=== PATIENT | male | born 1950 | race Caucasian/White ===

== ENCOUNTER 2018-05-19 04:41 | Inpatient (IN) | payer MEDICARE, MEDICAID ==
[~2018-05-19] VITALS: Ht 182.9 cm; Wt 86.9 kg
[~2018-05-19 04:41] MED LIST: ALBUTEROL SUL0.083 % IN; COLACE100 MG PO; FLEXERIL5 MG PO; LEVOTHYROXIN75 MCG PO; MOTRIN800 MG PO; PERCOCET 5/325M1 TAB PO
[2018-05-19] MEDS ORDERED: TAMSULOSIN0.4 MG PO (05:03)
--- NOTE | 2018-05-19 05:03 | NUR ---
PT WAS WHEELED STRAIGHT BACK TO ROOM 9.
[2018-05-19] MEDS ORDERED: MORPHINE SULFAT30 M1 PO (05:05)
[2018-05-19] MEDS ORDERED: LASIX40 MG PO (05:06)
[2018-05-19] MEDS ORDERED: OXYCODONE20 M1 PO (05:07)
[2018-05-19] MEDS ORDERED: MELOXICAM15 MG PO (05:07)
[2018-05-19] MEDS ORDERED: CLONAZEPAM1 MG PO (05:08)
[2018-05-19] MEDS ORDERED: LEVOTHYROXIN125 MC1 PO (05:08)
[2018-05-19] MEDS ORDERED: ZOLOFT50 MG PO (05:09)
[2018-05-19] MEDS ORDERED: POTASSIUM CHLO20 ME2 PO (05:09)
[2018-05-19] MEDS ORDERED: BREO ELLIPTA1 INH IN (05:10)
--- NOTE | 2018-05-19 05:30 | NUR ---
IN TO MEDICATE PT AND INFORMED PT I WAS GOING TO ADMINISTER PHENERGAN AND TORADOL FOR HIS PAIN AND PT REPLIED "THAT WONT WORK"
--- NOTE | 2018-05-19 05:41 | NUR ---
ASKED PT IF HIS PAIN IS STARTING TO EASE SINCE HE IS NO LONGER MOANING AND PT STATED NO.
[2018-05-19 05:49] LABS: AMYLASE 46 u/l (30-110); BILIRUBIN, TOTAL 1.1 mg/dL (0.0-1.4); BUN 18 mg/dL (8-23); BUN/CREATININE RATIO 18 (12-20 (CALC)); CARBON DIOXIDE 25 mmol/l (22-30); CHLORIDE 97 mmol/l (95-108); GFR > 60 ML/MIN (>=60 (CALC)); GFR FOR AFR.AMER. > 60 ML/MIN (>=60 (CALC)); LIPASE < 10 u/l (23-300); SGOT/AST 16 u/l (19-48); SGPT/ALT 23 u/l (11-66); SODIUM 138 mmol/l (137-146)
[2018-05-19 05:51] LABS: ANION GAP 21 (6-22 (CALC))
[2018-05-19 05:52] LABS: ALBUMIN 4.1 g/dL (3.2-5.0); ALKALINE PHOSPHATASE 118 u/l (38-126); POTASSIUM 4.7 mmol/l (3.5-5.1); TOTAL PROTEIN 7.9 g/dL (6.3-8.2)
[2018-05-19 05:55] LABS: HEMATOCRIT 39.2 % (39.0-50.0); HEMOGLOBIN 12.9 g/dl (14.0-18.0); IMMATURE GRANULOCYTES 1.1 % (0.0-5.0); MEAN CELL VOLUME 89.5 fL CALC (80.0-100.0); MEAN CORPUSCULAR HGB 29.5 pG CALC (26.0-32.0); MEAN CORPUSCULAR HGB CONC 32.9 g/L CALC (32.0-36.0); NEUT# 10.2 thou/uL (1.82-7.42); RED BLOOD COUNT 4.38 mill/uL (4.70-6.10); RED CELL DISTRI WIDTH 15.7 % (11.5-15.5)
--- NOTE | 2018-05-19 06:21 | NUR ---
PT UNABLE TO URINATE-DR GARAY ORDERED IV FLUIDS. WHILE HANGING FLUIDS I INQUIRED ABOUT PT'S PAIN SCALE SINCE PT STILL WAS NOT MOANING AND WAS LAYING ON STRETCHER WITH EYES CLOSED. PT STATED PAIN WAS A LOT BETTER BUT ASKED FROM 1-10 HOW WAS HIS PAIN HE SAID 10. INFORMED PT HE STATED PAIN WAS A LOT BETTER AND IT WAS A 10 WHEN HE CAME IN. PT THEN STATED 9, 8.5, THEN 7.
--- NOTE | 2018-05-19 06:27 | NUR ---
PT TO HAVE CT WITH ORAL CONTRAST. RT GHANSHYAM IN TO GIVE PT CONTRAST.
--- NOTE | 2018-05-19 06:50 | NUR ---
BEDSIDE REPORT GIVEN WITH DUNIA BRANNON.
--- NOTE | 2018-05-19 06:54 | NUR ---
PT RESTING COMFORTABLY IN STRETCHER RESTING WITH EYES CLOSED. PT AWAKENS TO VERBAL STIMULI AND DENIES ANY NEEDS. TEMP RECHECK 100.3, NOTIFIED AND AWAITING NEW ORDERS.
--- NOTE | 2018-05-19 07:06 | NUR ---
PT MEDICATED WITH 1000 MG OF TYLENOL. PT REPORTS LAST BM WAS 2 DAYS PRIOR AND HE HAS A HX OF CONSTIPATION. PER HE WAS KICKED IN THE TESTICLES 2 DAYS PRIOR WHEN THE ABD PAIN STARTED. PT A&O X 3, RESP EVEN AND UNLABORED. PT PAIN IS NOW 2/10. AND PT AWARE OF PLAN OF CARE AND WAIT TIME. PO CONSTRAST TOLERATED WELL AT THIS TIME.
--- NOTE | 2018-05-19 07:15 | NUR ---
PT REPORT INCREASE OF ABD PAIN. PAIN IS NOW 8/10. PT ALSO REQUESTING "BREATHING TREATMENT". PT HAS BREO AT BEDSIDE AND PER MD HE CAN USE IT. NEB TX ALSO ORDERED. MD AWARE OF INCREASE IN PAIN, AWAITING NEW ORDERS. IVF INFUSING WITH NO DIFFICULTY, IV SITE FREE FROM REDNESS AND EDEMA.
[2018-05-19 07:50] LABS: URINE BILIRUBIN - DIPSTICK NEGATIVE (NEGATIVE); URINE BLOOD DIPSTICK SMALL (NEGATIVE); URINE COLOR YELLOW; URINE GLUCOSE - DIPSTICK NEGATIVE (NEGATIVE); URINE KETONE 15 mg/dL (NEGATIVE); URINE LEUK ESTERASE NEGATIVE (NEGATIVE); URINE NITRITE - DIPSTICK NEGATIVE (Negative); URINE PROTEIN - DIPSTICK 30 mg/dL (NEG-TRACE); URINE SPECIFIC GRAVITY 1.025
[2018-05-19 07:52] LABS: URINE CLARITY CLEAR
--- NOTE | 2018-05-19 07:57 | NUR ---
PT RESTING ON STRETCHER WITH EYES CLOSED, BREATHING UNLABORED AND EASILY AROUSEABLE. IVF AND ABX INFUSING. CALL LIGHT IN REACH.
[2018-05-19 07:59] LABS: URINE WBC 0-2 WBC/hpf (0-5)
--- NOTE | 2018-05-19 08:05 | NUR ---
PT TO CT AND ULTRASOUND VIA STRETCHER IN STABLE CONDITION.
--- NOTE | 2018-05-19 09:10 | NUR ---
PT RETURNED FROM CT AND ULTRASOUND. PAIN IS NOW 4/10 AND PT RESTING COMFORTABLY IN STRETCHER. IV VANCO INITIATED. PT AWARE OF PENDING RESULTS AND WAIT TIME. CALL ZHOU WITHIN REACH.
--- NOTE | 2018-05-19 09:25 | NUR ---
MD AT BEDSIDE TO DISCUSS RESULTS AND PLAN FOR ADMISSION.
--- NOTE | 2018-05-19 09:38 | NUR ---
CALL PLACED TO MS, NURSE IN PT ROOM WILL CALL BACK FOR REPORT.
--- NOTE | 2018-05-19 10:00 | NUR ---
REPORT CALLED TO DUNIA VAUGHAN.
--- NOTE | 2018-05-19 10:30 | NUR ---
PT RESTING COMFORTABLY IN STRETCHER AND REPORTS PAIN IS 4/10. PT DENIES ANY NAUSEA AT THIS TIME. CALL ZHOU WITHIN REACH. PT AWARE OF PLAN FOR TRANSFER AND WAIT TIME.
--- NOTE | 2018-05-19 11:05 | NUR ---
Admission Note Report Given to: ALEXUS Transported by: Wheelchair X Stretcher Transported with: X Nurse Transporter X Patent IV O2 X Senior Ui Ux Designer PT TO ROOM 283 IN STABLE CONDITION.
[2018-05-19 11:18] VITALS: BP 107/64
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
--- NOTE | 2018-05-19 14:42 | NUR ---
DR AYALA HERE AT THIS TIME AND ROUDED WITH PT, PLAN IS TO USE ANTIBIOTICS FOR NOW AND IF NO IMPROVEMENTS POSSIBLE TRANSFER ELSEWHERE FOR SURGERY, KEEP NPO. DR MAYBERRY ALSO HERE AND ROUNDED, WROTE ORDERS.
[2018-05-19 16:00] VITALS: BP 118/63
[2018-05-19 19:00] VITALS: BP 114/61
--- NOTE | 2018-05-19 23:15 | NUR ---
PATIENT MEDICATED WITH KLONOPIN 1MG PO FOR ANXIETY AND WITH TYLENOL 650MG PO WITH SIP OF PO FLUIDS FOR TEMP OF 100.5, PATIENT ALSO MEDICATED FOR ADB PAIN WITH MORPHINE 4MG IVP FOR 10/10 ON PAIN SCALE. PATIENT PASSING GAS AND THEN I NCONT OF SMALL AMT OF LIQUID GREEN STOOL. ASSISTED TO BSC AND LINENS CHANGED. WILL ASSIST BACK TO THE BED WHEN FINISHED. CONT TO ENCOURAGE CDB EXERCISES AND USE OF IS Q1H WHILE AWAKE. USES WHEN REMINDED. POOR EFFORT. CALL LIGHT IN REACH. WILL CONT TO MONITOR.
[2018-05-20] VITALS (7 sets, daily range): BP systolic 108–135; BP diastolic 53–72
--- NOTE | 2018-05-20 00:11 | NUR ---
PATIENT BACK UP TO THE BSC FOR BM. TEMP 99.0 AT THIS TIME. PAIN IS 6/10 AT THIS TIME. STATES THAT THE ABD PRESSURE IS SOMEWHAT RELIEVED. IV ZOSYN HUNG ORDERED. CALL LIGHT IN REACH. WILL CONT TO MONITOR.
--- NOTE | 2018-05-20 02:36 | NUR ---
APPEARS SLEEPING AT THIS TIME-EYES CLOSED. O2 VIA NASAL CANNULA IN PLACE. RESP ARE EVEN AND UNLABORED. IVF PATENT AND INFUSING VIA RIGHT AC AT 100CC/HR. REMAINS NPO. CALL LIGHT IN REACH. WILL CONT TO COOPERIOR.
--- NOTE | 2018-05-20 04:15 | NUR ---
PATIENT INCONT OF SMALL AMT OF THICK LIQUID GREEN STOOL ON PAD IN THE BED. PATIENT THEN ASSISTED TO THE BSC AND HAD LARGE AMT OF THICK LIQUID DARK GREEN STOOL. PAD WAS CHANGED AND PATIENT ASSISTED WITH TMAEKA-CARE WITH SOAP AND WATER. BACK IN THE BED. REMAINS NPO ORDERED. IVF PATENT ANDINFUSING AT 100CC/HR VIA RIGHT AC SITE-APPEARS HEALTHY AT THIS TIME. PATIENT MEDICATED FOR 9O ABD PAIN WITH MORPHINE 4MG IVP AND WITH ZOFRAN FOR NAUSEA. SAFETY PRECAUTIONS REINFORCED. CALL LIGHT IN REACH. WILL CONT TO MONITOR.
[2018-05-20 07:00] LABS: HEMATOCRIT 33.6 % (39.0-50.0); IMMATURE GRANULOCYTES 0.6 % (0.0-5.0); MEAN CELL VOLUME 90.3 fL CALC (80.0-100.0); MEAN CORPUSCULAR HGB CONC 32.1 g/L CALC (32.0-36.0); NEUT# 9.75 thou/uL (1.82-7.42); RED BLOOD COUNT 3.72 mill/uL (4.70-6.10); RED CELL DISTRI WIDTH 15.8 % (11.5-15.5)
--- NOTE | 2018-05-20 07:00 | NUR ---
SHIFT CHANGE REPORT FROM SOFIE, PT AWAKE ALERT AND ORIENTED SITTING UP IN BED, STATES HIS PAIN IS GETTING BETTER AND HE FEELS BETTER SINCE HAVING A BM. CONCERNED ABOUT BLOOD GLUCOSE STATING HE WILL "CRASH" AND HIS CURRENT LEVEL, ADVISED HE WILL BE MONITORED AND STAFF WILL ADDRESS ANY AND ALL CONDITIONS OF CONCERN. DR ERIC SANDOVAL IN AND ROUNDED, INFORMED PT OF PLAN AND PT STATED UNDERSTANDING. WILL CONTINUE TO MONITOR, CALL ZHOU IN REACH.
[2018-05-20 07:02] LABS: HEMOGLOBIN 10.8 g/dl (14.0-18.0)
[2018-05-20 07:16] LABS: ANION GAP 11 (6-22 (CALC)); BUN 24 mg/dL (8-23); BUN/CREATININE RATIO 23 (12-20 (CALC)); CARBON DIOXIDE 27 mmol/l (22-30); CHLORIDE 104 mmol/l (95-108); GFR > 60 ML/MIN (>=60 (CALC)); GFR FOR AFR.AMER. > 60 ML/MIN (>=60 (CALC)); POTASSIUM 4.4 mmol/l (3.5-5.1); SODIUM 137 mmol/l (137-146)
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
--- NOTE | 2018-05-20 12:46 | NUR ---
RESTING IN BED AT THIS TIME, REQUESTING TO TALK WITH RETAIL WIRELESS SALES REPRESENTATIVE AGAIN, SHARON NOTIFIED AND STATED SHE WILL SEE HIM CESAR, WILL CONTINUE TO MONITOR.
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
--- NOTE | 2018-05-20 21:10 | NUR ---
RECIEVED CALL FROM ONUR IN ER-STATES THAT PATIENT WITH 8 BEAT RUN OF V-TACH AND THEN BACK TO SR-73. PATIENT RESTING IN BED WITH NO COMPLAINTS AT THIS TIME. VS TAKEN-155/67, HR-69. ASYMTOMATIC AT THIS TIME. CALL LIGHT IN REACH. WILL CONT TO MONITOR.
--- NOTE | 2018-05-20 21:54 | NUR ---
PATIENT RESTING IN BED WITH NO COMPLAINTS AT THIS TIME. TELE MONITOR IS SR-75 AT THIS TIME WITH [facility]. CALL LIGHT IN REACH. WILL CONT TO MONITOR.
--- NOTE | 2018-05-20 23:52 | NUR ---
PATIENT RESTING IN BED WITH O2 VIA NASAL CANNULA IN PLACE AT 2LPM. PATIENT IS AWAKE ALERT AND ORIENTEDX3. TELE MONITORING DEVICE IN PLACE. REMAINS NPO AT THIS TIME. ABD IS DISTENDED BUT SOFT AT THIS TIME. ACTIVE BS PRESENT. PASSING FLATUS AND CONT TO HAVE PASTY GREEN STOOLS TODAY. PICC TO RIGHT UPPER ARM INTACT WITH IVF D51/2NS 20MEQ KCL AT 100CC/HR. SITE APPEARS HEALTHY AT THIS TIME. SAFETY PRECAUTIONS REINFORCED. CALL LIGHT IN REACH. WILL CONT TO MONITOR.
[2018-05-21 00:10] VITALS: BP 114/68
--- NOTE | 2018-05-21 00:16 | NUR ---
PATIENT RESTING IN BED-C/O SEVERE ABD PAIN-10/10 ON PAIN SCALE. MEDICATED WITH MORPHINE 4MG IVP ORDERED FOR PAIN. IV ZOSYN HUNG ORDERED. CALL LIGHT IN REACH. WILL CONT TO MONITOR.
--- NOTE | 2018-05-21 04:30 | NUR ---
PATIENT RESTING IN BED-C/O 10/10 ON PAIN SCALE. MEDICATED WITH MORPHINE 4MG IVP FOR PAIN AND WITH ZOFRAN 4MG IVP FOR NAUSEA, TEMP WAS 100.5-TYLENOL 650 PO GIVEN WITH SIP OF H2O. LAB WORK DRAWN FROM RIGHT UPPER ARM PICC WITHOUT ANY DIFFICULTY-FLUSHED PER [facility] PROTOCOL WITH SALINE AND HEP KAMRYN. GOOD BLOOD RETURN. ENCOURAGED UP OF IS Q1H W/A. SAFETY PRECAUTIONS REINFORCED.CALL LIGHT IN REACH. WILL CONT TO MONITOR,
[2018-05-21 05:00] VITALS: BP 96/57
[2018-05-21 05:34] LABS: ANION GAP 13 (6-22 (CALC)); BUN 18 mg/dL (8-23); BUN/CREATININE RATIO 19 (12-20 (CALC)); CARBON DIOXIDE 27 mmol/l (22-30); CHLORIDE 101 mmol/l (95-108); GFR FOR AFR.AMER. > 60 ML/MIN (>=60 (CALC)); MAGNESIUM 1.9 mg/dL (1.6-2.3); POTASSIUM 4.5 mmol/l (3.5-5.1); SODIUM 137 mmol/l (137-146)
[2018-05-21 05:36] LABS: HEMATOCRIT 31.1 % (39.0-50.0); HEMOGLOBIN 10.2 g/dl (14.0-18.0); IMMATURE GRANULOCYTES 1.5 % (0.0-5.0); MEAN CELL VOLUME 89.9 fL CALC (80.0-100.0); MEAN CORPUSCULAR HGB 29.5 pG CALC (26.0-32.0); MEAN CORPUSCULAR HGB CONC 32.8 g/L CALC (32.0-36.0); NEUT# 13.14 thou/uL (1.82-7.42); RED BLOOD COUNT 3.46 mill/uL (4.70-6.10); RED CELL DISTRI WIDTH 16.2 % (11.5-15.5)
[2018-05-21 05:58] LABS: GFR > 60 ML/MIN (>=60 (CALC))
[2018-05-21 07:33] VITALS: BP 92/53
--- NOTE | 2018-05-21 07:42 | NUR ---
SHIFT CHANGE REPORT FROM ANGEL CARRIZALES SLEEPING SOUNDLY, AWAKENED ONLY TO TACTILE SRTIMULI, NO C/O DISCOMFORT AT THIS TIME, TELE MONITOR IN PLACE, IVF INFUSING, CALL ZHOU IN REACH.
--- NOTE | 2018-05-21 10:08 | NUR ---
S: ALFREDO RYAN is a 68 M who presents with APPENDICITIS WITH PERFORATION . He has a history of COPD, HYPOTHYRIODISM. All medications in patient's chart were reviewed. O: VS: BP <92/53>, P<57>, RR<20>,T<98.3> W <86kg>, HT<72 IN>, Scr=<1.0>,CrCl= <79 ml/min> A: Blood culture <is pending>. P: Patient is on <VANCOMYCIN AND ZOSYN>. Vancomycin ordered for pharmacy to dose. Start Vancomycin 1250MG IV Q<12>H. Vancomycin trough is drawn before the 4th dose on 05/22/18 1900. Vancomycin goal trough is between <15-20 mcg/ml>. Pharmacy will follow and or advise on antibiotics use as needed. LARS KWON PHARMD
[2018-05-21 11:30] VITALS: BP 109/58
--- NOTE | 2018-05-21 12:34 | NUR ---
DR BARRAGAN HERE ROUNDING, EXPLAINING PLAN OR CARE TO PT, PT RAISED VOICE BOISTEROUSLY USING THE "F" WORD SO LOUDLY THAT PATIENTS DOOR HEARD AND ASKED IF WE NEEDED HELP. HE IS ADAMANTLY REQUESTING FOOD NOW AND WILL NOT LISTEN TO DR BARRAGAN THE DOCTOR TRIED TO EXPLAIN THE REASON FOR NPO. HE INSIST/DEMANDED THAT DR BARRAGAN LISTEN TO HIM SO DR BARRAGAN STOPPED TALKING AND ALLOWED HIM TO SPEAK. HE THEN QUESTIONED DR OLEA IF HE (DR OLEA) IS GOING TO MAKE EVERY SICK PERSON NPO FOR DAYS AND HAVE THEM LAY IN BED. DR BARRAGAN AGAIN EXPLAINED HIS SPECIFIC CONDITION AND THE PLAN OF CARE. HE IS STILL PLEADING FOR FOOD AND COMPLETELY IGNORING EVERYTHING DR BARRAGAN JUST EXPLAINED TO HIM ABOUT FOOD GETTING TRAPPED IN HIS BOWELS AND WORSENING HIS CONDITION, HE IS EVEN ASKING FOR A STEAK. ALEXANDRIA ASH IS IN ROOM AT THIS TIME, PT ACCUSED ALEX[place]RIA OF LYING TO HIM ABOUT HIS MEDICATIONS. ALEX[place]RIA TRIED TO GIVE HIM THE FACTS BUT HE CONTINUED TO SHOUT AT [place]A ACCUSING HIM IN A LOUD VOICE REPEATEDLY SAYING "YOU LIED TO ME". HE SPOKE ABOVE THE VOICE OF BOTH DR. BARRAGAN AND ALEX[place]RIA. AT 1130 AFTER HIS SHOWER HE ADAMANTLY REFUSED HIS TELE MONITOR STATING "I HAVE A RIGHT TO REFUSE IT, I DO NOT WANT THAT THING BACK ON ME". DR BARRAGAN WAS NOTIFIED.
--- NOTE | 2018-05-21 15:49 | NUR ---
ADVISED OF NEW PROCEDURE ORDERED, STATED UNDERSTANDING, PREPARATION BEGINS NOW FOR TEST, PT IS COOPERATIVE, WILL CONTINUE TO MONITOR.
[2018-05-21 16:05] VITALS: BP 120/55
--- NOTE | 2018-05-21 17:00 | NUR ---
PT COMPLETED SERIES GASTROGRAFFIN AND TOLERATED WELL, RADIOLOGY NOTIFIED OF COMPLETION.
--- NOTE | 2018-05-21 19:20 | NUR ---
PATIENT AMB IN THE [facility] PUSHING HIS IN HER W/C-FULLY DRESSED. WHEN ASKED WHERE HE WAS GOING HE RESPONDED THAT HE WAS WALKING HER TO HER TRUCK AND WILL BE BACK. EXPLAINED TO PATIENT THAT CT HAS CALLED AND THEY ARE READY FOR HIM AT THIS TIME. PATIENT RESPONDED IN LOUD VOICE THAT HE WILL BE RIGHT BACK. 1929-PATIENT RETURNED TO THE FLOOR AND HOSPITAL GOWN PUT ON. PATIENT TO RADIOLOGY VIA W/C WITH STAFF IN ATTENDANCE. 1944-PATIENT RETURNED FROM RADIOLOGY VIA W/C WITH STAFF.PATIENT IS ALERT AND ORIENTED, SOMEWHAT AGITATED-MEDICATED WITH KLONOPIN FOR HIGH ANXIETY. PATIENT WITH PICC TO RIGHT UPPER ARM-FLUSHED WITH NS WITH GOOD BLOOD RETURN. SITE APPEARS HEALTHY AT THIS TIME. IVF D51/2NS 20KCL AT 100CC PATENT AND INFUSING ORDERED. VANCOMYCIN HUNG ORDERED. PATIENT PROVIDED WITH CLEAR LIQUIDS. STATES THAT HE WANTS SOME FOOD TO EAT-EXPLAINED TO THE PATIENT THAT DIET WOULD BE ADVANCED PER MD ORDERS AND FAILURE TO FOLLOW MD ORDER MAY RESULT IN FAILURE OF POC. STATES UNDERSTANDING AND PATIENT PROVIDED WITH ICE POP. PAIENT WITH CONCERNS REGUARDING HIS INHALERS AND WHEN HE WILL GET THEM BACK-EXPLAINED THAT HIS RX WILL BE RETURNED TO HIM UPON DISCHARGE HOME OR WHEN SOMEONE CAN TAKE THEM HOME FOR HIM. STATES THAT "HE WILL BELIVE IT WHEN HE SEES IT." LUNGS ARE CLEAR BUT DIMINISHED-ENCOURAGED USE OF IS Q1H WHILE AWAKE AND ABLE TO DEMONSTRATE PROPER USE OF THE DEVISE. ABD SOFTLY DISTENDED WITH HYPOACTIVE BS AT THIS TIME. STATES NO DIFFICULTY WITH VOIDING. NO PEDAL EDEMA NOTED.PEDAL PULSES PRESENT. SAFETY PRECAUTIONS REINFORCED. CALL LIGHT IN REACH. WILL CONT TO MONITOR.
[2018-05-21 19:45] VITALS: BP 119/71
--- NOTE | 2018-05-21 20:45 | NUR ---
PATIENT UP THE BR-HAD MODERATE AMT OF PASTEY GREEN STOOL. BACK TO THE BED-STEADY ON HIS FEET. PATIENT IS CALMER AT THIS TIME. MS ER 30MG GIVEN SCHEDULED FOR PAIN. WARM COMPRESS TO LLQ FOR COMFORT. SAFETY PRECAUTIONS REINFORCED. CALL LIGHT IN REACH. WILL CONT TO MONITOR.
--- NOTE | 2018-05-21 23:53 | NUR ---
PATIENT RESTING IN BED-C/O ABD PAIN 9/10 ON PAIN SCALE. PATIENT MEDICATEDWITH MORPHINE 4MG IVP. IVF INFUSING AT 100CC/HR. TAKING PO FLUIDS AND TOLERATED WELL. PATIENT HAD ANOTHER LOOSE GREEN STOOL. NO NAUSEA. PROVIDED WITH GATORADE. SAFETY REINFORCED. CALL LIGHT IN REACH. WILL CONT TO MONITOR.
--- NOTE | 2018-05-22 04:41 | NUR ---
PATIENT APPEARS SLEEPING AT THIS TIME. RESP ARE EVEN AND UNLABORED. IVF PATENT AND INFUSING AT 100CC/HR VIA RIGHT UPPER ARM PICC. CALL LIGHT IN REACH. WILL CONT TO MONITOR.
[2018-05-22 05:24] VITALS: BP 108/65
--- NOTE | 2018-05-22 05:30 | NUR ---
PATIENT RESTING IN BED-LABS DRAWN FROM RIGHT UPPER ARM PICC-GOOD BLOOD RETURN AND FLUSHED FREELY. IVF D51/2NS 20KCL HUNG AND INFUSING AT 100CC/HR. CHICKEN BROOTH PROVIDED TO PATIENT. CALL LIGHT IN REACH. WILL CONT TO MONITOR.
[2018-05-22 06:05] LABS: HEMATOCRIT 30.6 % (39.0-50.0); HEMOGLOBIN 9.9 g/dl (14.0-18.0); MEAN CORPUSCULAR HGB 29.1 pG CALC (26.0-32.0); MEAN CORPUSCULAR HGB CONC 32.4 g/L CALC (32.0-36.0); RED BLOOD COUNT 3.4 mill/uL (4.70-6.10); RED CELL DISTRI WIDTH 16.4 % (11.5-15.5)
[2018-05-22 06:14] LABS: ANION GAP 13 (6-22 (CALC)); BUN 15 mg/dL (8-23); BUN/CREATININE RATIO 17 (12-20 (CALC)); CARBON DIOXIDE 27 mmol/l (22-30); CHLORIDE 102 mmol/l (95-108); CREATININE 0.9 mg/dL (0.7-1.3); GFR > 60 ML/MIN (>=60 (CALC)); GFR FOR AFR.AMER. > 60 ML/MIN (>=60 (CALC)); POTASSIUM 4.2 mmol/l (3.5-5.1); SODIUM 137 mmol/l (137-146)
[2018-05-22 07:35] VITALS: BP 113/48
--- NOTE | 2018-05-22 07:35 | NUR ---
ASSESSMENT IS COMPLETED: IV SITE IS FREE FROM REDNESS OR EDEMA. HR IS REG, PULSES ARE STRONG X4, ABD IS SOFT WITH ACTIVE BS. BREATH SOUNDS ARE CLEAR AND DIMINSHED. CONTINUE TO OBSERVE AND MONITOR.
--- NOTE | 2018-05-22 12:15 | NUR ---
PT HAS BEEN UP AND DOWN OFF THE BSC. LOOSE BM. C/O DISCHARGE INSTRUCTIONS NOT COMPLETED YET. INQUIRING IF HE WAS GOING HOME. JAMIE WOOD SAW PT YESTERDAY STATED" IF I AM ABLE TO EAT THEN I CAN GO HOME" SPOKE WITH DR. BARRAGAN AND INQUIRED ABOUT THE DISCHARGE. STATED" I AM WORKING ON THE ABT FOR OUT PT". INFORMED PT AND VERBALIZED UNDERSTANDING. PT INFORMED THIS CASE FITTER "IF I AM NOT GOING TO GO HOME THEN I WILL REFUSE ALL MEDICATIONS"
[2018-05-22] MEDS ORDERED: METRONIDAZOL500 MG PO (13:09)
[2018-05-22] MEDS ORDERED: ROCEPHIN 2 GM2 GM IV (13:09)
--- NOTE | 2018-05-22 14:37 | NUR ---
IV SITE FLUSHED WITH NS AND HEPARIN. GAVE DISCHARGE INSTRUCTIONS TO . WHILE PT IS IN THE BATHROOM GETTING CLEANED UP. CONTINUE TO OSBERVE AND MONITOR.
--- NOTE | 2018-05-22 14:59 | NUR ---
PT TRANSPORTED TO THE CAR VIA Discharge instructions given. Patient verbalizes understanding of same. Discharged in stable condition via Wheelchair to Home with family. All belongings sent with pt.
== END 2018-05-22 14:53 | disposition home or self-care (01) | DRG 372 ==
LOC: ED 04:41 → ED-I 09:29 → ED 09:29 → MS2 09:30
PROVIDERS: Family Medicine; Internal Medicine; Nurse Practitioner Family; ADMIT General Practice; ATTEND General Practice
PROC: 02HV33Z Insertion of Infusion Device into Superior Vena Cava, Percutaneous Approach (ICD-10-PCS; principal; 2018-05-20)
PROC: B518ZZA Fluoroscopy of Superior Vena Cava, Guidance (ICD-10-PCS; 2018-05-20)
DX: K35.3 Acute appendicitis with localized peritonitis (principal); F11.20 Opioid dependence, uncomplicated; J44.9 Chronic obstructive pulmonary disease, unspecified; G89.4 Chronic pain syndrome; E03.9 Hypothyroidism, unspecified; I50.9 Heart failure, unspecified; S39.94XA Unspecified injury of external genitals, initial encounter; F99 Mental disorder, not otherwise specified; Y00.XXXA Assault by blunt object, initial encounter; Z99.81 Dependence on supplemental oxygen
CPT/HCPCS: J3370

== ENCOUNTER 2018-12-17 15:00 | Outpatient (RCR) | payer MEDICARE, MEDICAID ==
[~2018-12-17 15:00] MED LIST changes: +BREO ELLIPTA1 INH IN; +CLONAZEPAM1 MG PO; +LASIX40 MG PO; +LEVOTHYROXIN125 MC1 PO; +MELOXICAM15 MG PO; +METRONIDAZOL500 MG PO; +MORPHINE SULFAT30 M1 PO; +OXYCODONE20 M1 PO; +POTASSIUM CHLO20 ME2 PO; +ROCEPHIN 2 GM2 GM IV; +TAMSULOSIN0.4 MG PO; +ZOLOFT50 MG PO
== END 2018-12-17 16:00 | disposition home or self-care (01) ==
LOC: PT 15:00
PROVIDERS: ATTEND Family Medicine
DX: S72.001D Fracture of unspecified part of neck of right femur, subsequent encounter for closed fracture with routine healing (principal); R26.89 Other abnormalities of gait and mobility